=== PATIENT | female | born 1950 | race Caucasian/White ===

== ENCOUNTER 2018-03-17 20:00 | Emergency (ER) | payer MEDICARE ==
[~2018-03-17] VITALS: Ht 157.5 cm; Wt 79.4 kg
[~2018-03-17 20:00] MED LIST: AMOCLA875 PO; ASPI325 PO; ATEN25 PO; BAYER PLUS 500500 MG PO; BP MED; CYCL10 PO; IBUP400 PO; OMEP20ER PO; OXYACE5T PO; VIOXX
== END 2018-03-17 21:03 | disposition home or self-care (01) ==
LOC: ER 20:00
DX: S09.90XA Unspecified injury of head, initial encounter (principal); S40.012D Contusion of left shoulder, subsequent encounter; W18.30XA Fall on same level, unspecified, initial encounter; Z79.899 Other long term (current) drug therapy; I10 Essential (primary) hypertension; F17.200 Nicotine dependence, unspecified, uncomplicated
CPT/HCPCS: 70450; 72125; 99284-25

== ENCOUNTER 2019-03-02 00:19 | Day surgery (SDC) | payer OTHER | END 2019-03-02 23:07 | disposition home or self-care (01) | LOC: WOUND 00:19 | DX: L97.822 Non-pressure chronic ulcer of other part of left lower leg with fat layer exposed (principal); L97.821 Non-pressure chronic ulcer of other part of left lower leg limited to breakdown of skin; I87.2 Venous insufficiency (chronic) (peripheral); I73.9 Peripheral vascular disease, unspecified | CPT/HCPCS: 87070; 87075; 87205; G0463 ==

== ENCOUNTER 2019-03-12 02:32 | Day surgery (SDC) | payer OTHER | END 2019-03-12 22:43 | disposition home or self-care (01) | LOC: WOUND 02:32 | DX: L97.821 Non-pressure chronic ulcer of other part of left lower leg limited to breakdown of skin (principal); L97.822 Non-pressure chronic ulcer of other part of left lower leg with fat layer exposed; I87.2 Venous insufficiency (chronic) (peripheral); I10 Essential (primary) hypertension; Z72.0 Tobacco use ==

== ENCOUNTER 2019-03-29 12:59 | Day surgery (SDC) | payer OTHER | END 2019-03-29 23:08 | disposition home or self-care (01) | LOC: WOUND 12:59 | DX: L97.821 Non-pressure chronic ulcer of other part of left lower leg limited to breakdown of skin (principal); S81.001A Unspecified open wound, right knee, initial encounter; I87.2 Venous insufficiency (chronic) (peripheral); I73.9 Peripheral vascular disease, unspecified; I10 Essential (primary) hypertension; F17.200 Nicotine dependence, unspecified, uncomplicated ==

== ENCOUNTER 2019-04-05 00:30 | Day surgery (SDC) | payer OTHER | END 2019-04-05 23:07 | disposition home or self-care (01) | LOC: WOUND 00:30 | DX: L97.821 Non-pressure chronic ulcer of other part of left lower leg limited to breakdown of skin (principal); S81.001D Unspecified open wound, right knee, subsequent encounter; I87.2 Venous insufficiency (chronic) (peripheral); I73.9 Peripheral vascular disease, unspecified; I10 Essential (primary) hypertension; F17.200 Nicotine dependence, unspecified, uncomplicated ==

== ENCOUNTER 2019-04-07 00:20 | Day surgery (SDC) | payer OTHER | END 2019-04-07 23:14 | disposition home or self-care (01) | LOC: WOUND 00:20 | DX: L97.822 Non-pressure chronic ulcer of other part of left lower leg with fat layer exposed (principal); I87.2 Venous insufficiency (chronic) (peripheral); I73.9 Peripheral vascular disease, unspecified; S81.001D Unspecified open wound, right knee, subsequent encounter; I10 Essential (primary) hypertension ==

== ENCOUNTER 2019-04-12 00:24 | Day surgery (SDC) | payer OTHER | END 2019-04-12 22:48 | disposition home or self-care (01) | LOC: WOUND 00:24 | DX: L97.821 Non-pressure chronic ulcer of other part of left lower leg limited to breakdown of skin (principal); I87.2 Venous insufficiency (chronic) (peripheral); I73.9 Peripheral vascular disease, unspecified; I10 Essential (primary) hypertension; S81.001D Unspecified open wound, right knee, subsequent encounter ==

== ENCOUNTER 2019-04-19 00:34 | Day surgery (SDC) | payer OTHER | END 2019-04-19 23:22 | disposition home or self-care (01) | LOC: WOUND 00:34 | DX: L97.822 Non-pressure chronic ulcer of other part of left lower leg with fat layer exposed (principal); S81.001D Unspecified open wound, right knee, subsequent encounter; I87.2 Venous insufficiency (chronic) (peripheral); I73.9 Peripheral vascular disease, unspecified; I10 Essential (primary) hypertension; F17.200 Nicotine dependence, unspecified, uncomplicated ==

== ENCOUNTER 2019-04-26 12:52 | Day surgery (SDC) | payer OTHER | END 2019-04-26 22:55 | disposition home or self-care (01) | LOC: WOUND 12:52 | DX: L97.822 Non-pressure chronic ulcer of other part of left lower leg with fat layer exposed (principal); I87.2 Venous insufficiency (chronic) (peripheral); I73.9 Peripheral vascular disease, unspecified; S81.001D Unspecified open wound, right knee, subsequent encounter; I10 Essential (primary) hypertension; F17.200 Nicotine dependence, unspecified, uncomplicated; F41.9 Anxiety disorder, unspecified; F32.9 Major depressive disorder, single episode, unspecified; X58.XXXD Exposure to other specified factors, subsequent encounter | CPT/HCPCS: Q4196 ==

== ENCOUNTER 2019-05-03 12:11 | Day surgery (SDC) | payer OTHER | END 2019-05-03 22:45 | disposition home or self-care (01) | LOC: WOUND 12:11 | DX: L97.822 Non-pressure chronic ulcer of other part of left lower leg with fat layer exposed (principal); I87.2 Venous insufficiency (chronic) (peripheral); S81.001D Unspecified open wound, right knee, subsequent encounter; I10 Essential (primary) hypertension; F41.9 Anxiety disorder, unspecified; F32.9 Major depressive disorder, single episode, unspecified; F17.200 Nicotine dependence, unspecified, uncomplicated | CPT/HCPCS: Q4196 ==

== ENCOUNTER 2019-05-12 13:11 | Day surgery (SDC) | payer OTHER | END 2019-05-12 23:02 | disposition home or self-care (01) | LOC: WOUND 13:11 | DX: L97.822 Non-pressure chronic ulcer of other part of left lower leg with fat layer exposed (principal); I87.2 Venous insufficiency (chronic) (peripheral); I10 Essential (primary) hypertension; F17.200 Nicotine dependence, unspecified, uncomplicated; F41.9 Anxiety disorder, unspecified; F32.9 Major depressive disorder, single episode, unspecified | CPT/HCPCS: G0463 ==

== ENCOUNTER → 2019-11-23 | Outpatient (CLI) | payer OTHER ==
[2019-11-23 20:09] LABS: Alanine Aminotransfer (ALT/SGP 14 U/L (12-78); Albumin, Blood 3.7 g/dL (3.4-5.0); Albumin/Globulin Ratio 1.1 (0.8-1.8); Alk Phos 80 U/L (50-136); Anion Gap 7 mmol/L (6-16); Aspartate Aminotrans (AST/SGOT 14 U/L (12-37); Bilirubin, Total 0.3 mg/dL (0.1-1.0); Blood Urea Nitrogen 22 mg/dL (8-24); Bun/Creatinine Ratio 23.6 (12.0-20.0); CO2, Blood 21 mmol/L (21-32); Calcium, Blood 8.8 mg/dL (8.5-10.1); Chloride, Blood 104 mmol/L (98-108); Creatinine, Blood 0.93 mg/dL (0.40-1.00); Globulin, Blood 3.5 g/dL (2.2-4.0); Glomerular Filtration Rate >60 (60-); Glucose, Blood 112 mg/dL (70-99); Potassium, Blood 4.8 mmol/L (3.5-5.5); Sodium, Blood 132 mmol/L (136-145); Total Protein, Blood 7.2 g/dL (6.4-8.2)
[2019-11-24 12:09] LABS: BASOPHILS ABSOLUTE AUTO 0.03 K/mm3 (0.00-0.23); BASOPHILS PERCENT AUTO 1 % (0-2); EOSINOPHILS ABSOLUTE AUTO 0.11 K/mm3 (0.00-0.68); EOSINOPHILS PERCENT AUTO 2 % (0-6); Hematocrit 38.6 % (33.0-51.0); IMMATURE GRAN ABSOLUTE AUTO 0.02 K/mm3 (0.00-0.10); IMMATURE GRAN PERCENT AUTO 0 % (0-1); LYMPHOCYTES ABSOLUTE AUTO 1.59 K/mm3 (0.84-5.20); LYMPHOCYTES PERCENT AUTO 28 % (21-46); MONOCYTES ABSOLUTE AUTO 0.37 K/mm3 (0.16-1.47); MONOCYTES PERCENT AUTO 7 % (4-13); Mean Corpuscular HGB 31.6 pg (26.0-34.0); Mean Corpuscular HGB Conc 33.7 g/dL (31.5-36.5); Mean Corpuscular Volume 94 fL (80-100); Mean Platelet Volume 11.6 fL (9.1-12.4); NEUTROPHILS ABSOLUTE AUTO 3.56 K/mm3 (1.96-9.15); NEUTROPHILS PERCENT AUTO 63 % (41-73); Platelet Count 186 K/mm3 (150-400); RDW Standard Deviation 48.3 fL (35.1-46.3); Red Blood Cell Count 4.11 M/mm3 (3.80-5.20); White Blood Cell Count 5.68 K/mm3 (4.00-11.30)
== END | disposition home or self-care (01) ==
LOC: LAB SHORT 18:37 → LAB 18:37
PROVIDERS: Physician Assistant
DX: I73.9 Peripheral vascular disease, unspecified (principal); I10 Essential (primary) hypertension
CPT/HCPCS: 80053; 85025

== ENCOUNTER 2020-01-12 07:57 | Day surgery (SDC) | payer OTHER ==
[~2020-01-12] VITALS: Ht 172.7 cm; Wt 84.0 kg
[~2020-01-12 07:57] MED LIST changes: +ATOR20 PO; +LOSARTAN POTAS100 M1 PO; +METO100 PO
[2020-01-12] MEDS ORDERED: CLOP75 PO (12:40)
--- NOTE | 2020-01-12 14:19 | NUR ---
PT AMB TO BATHROOM /C SBA. TOLERATED WELL. -BLEEDING OR SWELLING R GROIN AREA.
--- NOTE | 2020-01-12 14:28 | NUR ---
REPORT TAKEN FROM DARLYN MENDEZ RN TO ASSUME CARE. PT RESTING COMFORTABLY.SITE REMAINS STABLE. VSS. NADN. CALL LIGHT WITHIN REACH.
--- NOTE | 2020-01-12 15:03 | NUR ---
PT VERBALIZES UNDERSTANDING WRITTEN AND VERBAL ORDERS. VSS. NADN. PT DRESSES SELF WITHOUT DIFF. R FEM SITE REMAINS CLEAR. PT IV DC'D. CATH INTACT. PRESSURE DSG APPLIED. PT DC TO HOME VIA WC BY ESCORT/ PT MOTHER TO DRIVE PT HOME.
== END 2020-01-12 15:05 | disposition home or self-care (01) ==
LOC: MHTC 07:57
DX: I70.212 Atherosclerosis of native arteries of extremities with intermittent claudication, left leg (principal); I10 Essential (primary) hypertension; I87.2 Venous insufficiency (chronic) (peripheral); Z79.899 Other long term (current) drug therapy; Z91.038 Other insect allergy status; Z79.82 Long term (current) use of aspirin
CPT/HCPCS: 37225; 37228; 75625; 75716; 75774; 85347; 99152; 99153; C1725; C1760; C1769; C1884; C1887; C1894; C2623; J1644; J2060; J2250; J2405; J3010; J7030; Q9967; U0002

== ENCOUNTER 2020-08-09 18:23 | Emergency (ER) | payer OTHER ==
[~2020-08-09] VITALS: Ht 170.2 cm; Wt 90.7 kg
[~2020-08-09 18:23] MED LIST changes: +CLOP75 PO
== END 2020-08-09 20:18 | disposition home or self-care (01) ==
LOC: ER 18:23
DX: S01.01XA Laceration without foreign body of scalp, initial encounter (principal); F10.129 Alcohol abuse with intoxication, unspecified; I10 Essential (primary) hypertension; Z79.899 Other long term (current) drug therapy; Z79.82 Long term (current) use of aspirin; Z79.02 Long term (current) use of antithrombotics/antiplatelets; Z87.891 Personal history of nicotine dependence; W01.10XA Fall on same level from slipping, tripping and stumbling with subsequent striking against unspecified object, initial encounter
CPT/HCPCS: 12001; 70450; 72125; 99284-25

== ENCOUNTER 2023-06-16 10:55 | Inpatient (IN) | payer OTHER ==
[~2023-06-16] VITALS: Ht 170.2 cm; Wt 101.6 kg
[2023-06-16] VITALS (11 sets, daily range): BP systolic 64–129; BP diastolic 40–110
[2023-06-16 11:18] LABS: BASOPHILS ABSOLUTE AUTO 0.07 K/mm3 (0.00-0.23); BASOPHILS PERCENT AUTO 1 % (0-2); LYMPHOCYTES ABSOLUTE AUTO 0.66 K/mm3 (0.84-5.20); LYMPHOCYTES PERCENT AUTO 7 % (21-46); MONOCYTES ABSOLUTE AUTO 0.98 K/mm3 (0.16-1.47); MONOCYTES PERCENT AUTO 10 % (4-13); Mean Corpuscular HGB 30.4 pg (26.0-34.0); Mean Corpuscular HGB Conc 33.3 g/dL (31.5-36.5); Mean Corpuscular Volume 91 fL (80-100); Mean Platelet Volume 10.7 fL (9.1-12.4); Platelet Count 179 K/mm3 (150-400); RDW Coefficient Variation 13.8 % (11.7-14.2); RDW Standard Deviation 45.9 fL (35.1-46.3); Red Blood Cell Count 4.28 M/mm3 (3.80-5.20); White Blood Cell Count 10.13 K/mm3 (4.00-11.30)
[2023-06-16 11:19] LABS: EOSINOPHILS PERCENT AUTO 0 % (0-6); IMMATURE GRAN PERCENT AUTO 1 % (0-1); NEUTROPHILS ABSOLUTE AUTO 8.32 K/mm3 (1.96-9.15); NEUTROPHILS PERCENT AUTO 82 % (41-73)
[2023-06-16 11:35] LABS: Albumin, Blood 2.1 g/dL (3.4-5.0); Albumin/Globulin Ratio 0.6 (0.8-1.8); Bilirubin, Total 0.9 mg/dL (0.1-1.0); Bun/Creatinine Ratio 15.1 (12.0-20.0); Calcium, Blood 8.2 mg/dL (8.5-10.1); Creatinine, Blood 4.18 mg/dL (0.40-1.00); Globulin, Blood 3.8 g/dL (2.2-4.0); Potassium, Blood 4.6 mmol/L (3.5-5.5); Total Protein, Blood 5.9 g/dL (6.4-8.2)
[2023-06-16 12:21] LABS: Influenza A, PCR NEGATIVE (NEGATIVE); Influenza B, PCR NEGATIVE (NEGATIVE); Resp Syncytial Virus, PCR NEGATIVE (NEGATIVE); SARS-Cov-2 (COVID-19) PCR, MMC NEGATIVE (NEGATIVE)
[2023-06-16] MEDS ORDERED: AMLO10 PO (16:08)
[2023-06-16] MEDS ORDERED: ELIQUIS5 M2 PO (16:08)
[2023-06-16] MEDS ORDERED: FOLI1 PO (16:24)
[2023-06-16] MEDS ORDERED: ROSU10TA PO (16:25)
[2023-06-16] MEDS ORDERED: GABA300 PO (16:25)
--- NOTE | 2023-06-16 18:46 | NUR ---
Received pt from ED at 1700 awake and alert x3. Gen pain, and sensitive to touch. Able to turn self with min ast side to side. Afib RVR on monitor. Resp even nonlabored on 2L. Finger tips cool and cyanotic. Toes cool. BLE edema noted. See skin assessment and refer to pictures. Oriented to room and call light. One episode of watery stool sent to lab.
[2023-06-16 20:30] LABS: Base Excess Venous -10.8 mmol/L; Bicarbonate Venous 16.6 mmol/L (24.0-30.0); PCO2 Venous 31.4 mmHg (38-42)
[2023-06-16 20:46] LABS: Bun/Creatinine Ratio 16.6 (12.0-20.0); Calcium, Blood 7.3 mg/dL (8.5-10.1); Creatinine, Blood 4.28 mg/dL (0.40-1.00); Magnesium, Blood 1.3 mg/dL (1.6-2.4)
[2023-06-16 20:56] LABS: Adenovirus F 40/41 Not Detected (NOT DETECT); Astrovirus Not Detected (NOT DETECT); Campylobacter Sp Detected (NOT DETECT); Cryptosporidium Not Detected (NOT DETECT); Cyclospora Cayetanensis Not Detected (NOT DETECT); E. Coli O157 Not Detected (NOT DETECT); Entamoeba Histolytica Not Detected (NOT DETECT); Enteroaggregative E. coli-EAEC Not Detected (NOT DETECT); Enteropathogenic E. coli-EPEC Not Detected (NOT DETECT); Enterotoxigenic E. coli-ETEC Not Detected (NOT DETECT); Giardia Lamblia Not Detected (NOT DETECT); Norovirus GI/GII Not Detected (NOT DETECT); Plesiomonas Shigelloides Not Detected (NOT DETECT); Rotavirus A Not Detected (NOT DETECT); Salmonella Sp Not Detected (NOT DETECT); Sapovirus Not Detected (NOT DETECT); Shiga Toxin-prod E. coli-STEC Not Detected (NOT DETECT); Shigella/Enteroin E. coli-EIEC Not Detected (NOT DETECT); Vibrio Cholerae Not Detected (NOT DETECT); Vibrio Sp Not Detected (NOT DETECT); Yersinia Enterocolitica Not Detected (NOT DETECT)
--- NOTE | 2023-06-16 22:07 | NUR ---
PT HR WAS AFIB SUSTAINING IN THE 150'S. UNABLE TO GET BP WITH MONITOR. TRIED MANUAL BP BUT IT WAS SO FAINT THAT IT WAS HARD TO DISTINGUISH. 80'S TO 90'S SYSTOLIC. CALLED PHYSICIAN, LABS AND XRAY WERE ORDERED. PT TO GO TO PCU 7. PCU CHARGE CAME DOWN AND STARTED AMIODARONE DRIP. GAVE REPORT TO PAYTON Bagley IN PCU. DECIDED TO SEND PT TO ICU 11, REPORT GIVEN TO BERNICE. PCU CHARGE TOOK PT TO ICU.
--- NOTE | 2023-06-16 22:54 | NUR ---
2100 - THIS RN ARRIVED TO [facility] FLOOR AFTER RECEIVING CALL FROM STRADDLE BUGGY OPERATOR THAT PATIENT WOULD BE TRANSFERRING TO PCU. PCU ROOM CURRENTLY BEING CLEANED BUT NOT AVAILABLE. UPON EVALUATION OF PT, CHART AND VITALS, HR IN 140-150S AND BP LOW. TAKES PO METOPROLOL BUT UNABLE TO TOLERATE DUE TO NAUSEA AND HASN'T TAKEN SINCE YESTERDAY PER PT. AMIO GTT ORDERED BY PROVIDER BUT NOT STARTED. AMIO BOLUS AND GTT STARTED BY THIS RN TO ATTEMPT BETTER RATE CONTROL FOR IMPROVEMENT IN BP. REMAINED AT BEDSIDE. VITALS OBTAINED Q5-15MIN AND BP REMAINED LOW WITH SOME IMPROVEMENT IN HR TO 110S AT TIMES. PT REPORTS FEELING COLD AND TIRED. DENIES DIZZINESS OR LIGHTHEADINESS AND REMAINED AWAKE. AFTER DISCUSSION WITH DR. FIORE AND CONTINUED LOW BP S/P AMIO X1 HOUR AND IV BOLUS, PT ULTIMATELY TRANSFERRED TO ICU -11 FOR CLOSER MONITORING. REPORT GIVEN BY PRIMARY RN.
[2023-06-17] VITALS (92 sets, daily range): BP systolic 56–175; BP diastolic 31–149
[2023-06-17 02:59] LABS: Source, Urine Foley catheter
[2023-06-17 03:02] LABS: Bilirubin, Urine Neg (Neg); Blood, Urine 3+ (Neg); Glucose Qualitative, Urine Neg (Neg); Ketones, Urine Neg (Neg); Leukocyte Esterase, Urine 2+ (Neg); Nitrite, Urine Neg (Neg); Protein, Urine 3+ (Neg); Urobilinogen, Urine NORM (Normal)
[2023-06-17 03:18] LABS: Base Excess Venous -12.9 mmol/L; Bicarbonate Venous 14.9 mmol/L (24.0-30.0); PCO2 Venous 30.8 mmHg (38-42)
[2023-06-17 03:19] LABS: pH Blood Venous 7.27 (7.34-7.37)
[2023-06-17 03:26] LABS: Hematocrit 30.6 % (33.0-51.0); Hemoglobin 10.5 g/dL (11.5-16.0); Mean Corpuscular HGB 30.2 pg (26.0-34.0); Mean Corpuscular HGB Conc 34.3 g/dL (31.5-36.5); Mean Corpuscular Volume 88 fL (80-100); Mean Platelet Volume 10.6 fL (9.1-12.4); Platelet Count 140 K/mm3 (150-400); RDW Coefficient Variation 13.6 % (11.7-14.2); Red Blood Cell Count 3.48 M/mm3 (3.80-5.20); White Blood Cell Count 8.13 K/mm3 (4.00-11.30)
[2023-06-17 03:49] LABS: Appearance, Urine Hazy (Clear); Color, Urine Yellow (P-Yellow)
[2023-06-17 03:49] LABS: Bun/Creatinine Ratio 17.1 (12.0-20.0); Calcium, Blood 6.8 mg/dL (8.5-10.1); Creatinine, Blood 3.97 mg/dL (0.40-1.00); Magnesium, Blood 1.5 mg/dL (1.6-2.4); Potassium, Blood 3.8 mmol/L (3.5-5.5)
[2023-06-17 03:51] LABS: Amorphous Light (0-Heavy); Bacteria Many /hpf; Red Blood Cells, Urine 0-2 /hpf (0-2); Squamous Epithelial Cells Mod /hpf (Few); White Blood Cells, Urine 25-50 /hpf (0-5)
[2023-06-17 04:42] LABS: BAND PERCENT MAN 24 % (0-8); BASOPHILS PERCENT MAN 0 % (0-2); EOSINOPHILS PERCENT MAN 0 % (0-6); LYMPHOCYTES ABSOLUTE MAN 0.24 K/mm3 (0.84-5.20); LYMPHOCYTES PERCENT MAN 3 % (21-46); MONOCYTES ABSOLUTE MAN 0.48 K/mm3 (0.16-1.47); MONOCYTES PERCENT MAN 6 % (4-13); NEUTROPHILS ABSOLUTE MAN 7.39 K/mm3 (1.96-9.15); SEG NEUTROPHILS PERCENT MAN 67 % (41-73); TOTAL CELLS COUNTED 100
--- NOTE | 2023-06-17 07:37 | NUR ---
ARRIVAL TO ICU PT ARRIVED VIA BED TO ICU 11 WITH PCU CHARGE NURSE AT BEDSIDE. MAP 50-60'S. VERIFIED WITH MANUAL BP AND DOPPLER. AMIO STARTED PRIOR TO ARRIVAL. PROVIDER AT BEDSIDE. ORDER FOR FLUID BOLUS. SEE EMAR. PT REMAINED HYPOTENSIVE, MANUAL SBP 52. PT PALE, AND LETHARGIC. HOSP CALLED AND UPDATED. ORDER FOR 2L NS BOLUS. PROVIDER AWARE OF NO IMPROVEMENT IN BP AFTER BOLUS AND MAP 40-50'S. AFTER FIRST BAG OF NS COMPLETE AND NO IMPROVEMENT IN BP, PROVIDER AT BEDSIDE. ORDER TO GIVE REMAINING BOLUS, ALBUMIN AND START TEMITOPE. SEE EMAR. CRITICAL LA, AND PH CALLED TO HOSP. ORDERS RECEIVED. URENA PLACED AND DRAINING MINIMAL AMOUNT OF JULIO URINE. UNABLE TO GET SPO2 READING UNTIL THIS AM. HOSP AWARE. 6L VIA NC. PT A/O X 4. FOLLOWS COMMANDS AND MOVES ALL EXTREMITIES. VSS THIS AM. TEMITOPE, AMIO, AND NS INFUSING. CLAY "ANAY" GIVEN UPDATE AT TIME OF TRANSFER AND THIS AM. BEDSIDE REPORT GIVEN TO ONCOMING RN.
--- NOTE | 2023-06-17 10:49 | NUR ---
"SPiritual Care | Pt. request Pt. is resting but responds when I enter the room. Pt. is unsettled by her lack of bowel control, and is continually apologetic. Facilitate a life review. Pt. verbalizes that her mother is a support person, but because of her mothers's age, Pt. does not want her coming to hospital from her home in [place]. Pt. displays evidence of being very cold. Prayed for Pt. Pt. verbalized gratitude for the spiritual care visit."
[2023-06-17 13:03] LABS: Bicarbonate Venous 16.6 mmol/L (24.0-30.0); PCO2 Venous 37.1 mmHg (38-42); pH Blood Venous 7.27 (7.34-7.37)
[2023-06-17 13:25] LABS: Bun/Creatinine Ratio 17.8 (12.0-20.0); Calcium, Blood 7.1 mg/dL (8.5-10.1); Creatinine, Blood 3.54 mg/dL (0.40-1.00); Magnesium, Blood 1.4 mg/dL (1.6-2.4); Phosphorus, Blood 4.4 mg/dL (2.5-4.9); Potassium, Blood 3.5 mmol/L (3.5-5.5)
--- NOTE | 2023-06-17 15:32 | NUR ---
0700 ASSUMED CARE OF ILYA TODAY. [address] 0845 ULTRASOUND DONE 0900 PICC LINE PLACED BY LING GUEVARA 0930 ECHO COMPLETED 1000 PT HAS GOING BICARB DRIP AT 75/HR, NS AT 75/HR, ELECTROLYTE REPLACEMENT'S FREQ., ANTIBIOTICS GOING AND CHANGED UP. PT IS ALERT AND ORIENTED HOWEVER WEAK AND A BIT DROWSY. SHE NEEDS HELP TURNING SIDE TO SIDE IN BED. SHE HAS LE EDEMA GREATER ON THE LEFT THAN RIGHT WITH WHEEPING LEGS AND BLISTERS THE SIZE OF A SOFT BALL TO RIGHT FOOT RIGHT CALF. SHE DID HAVE THE BLISTER ON HER RIGHT CALF POP OPEN, DRESSING ARE ON HEELS AND OVER POSTERIOR AND ANTERIOR OF LOWER LEGS. SHE HAS A URENA IN PLACE WITH VERY LITTLE URINE OUT.. MEASURING 15-20ML/HR OUT THROUGHOUT THE DAY. PT HAS HAD 3 LG LOOSE INCONTINENT STOOLS TODAY AND THEN A RECTAL TUBE WAS PLACED HOWEVER IT IS STLL LEAKING AROUND THE TUBE TOO. SHE HAS SOFT BUT TENDER ABD AND RIBS. HYPERACTIVE BT. CLEAR LUNG SOUNDS ON 6L NC START OF DAY AND OF 1200 SHE WAS DROPPED TO 4L NC. SHE IS OXYGENATIONG WELL SPOW 99-100%. SHE IS NOT HAVING FEVER'S ABOVE 99.4 SO FAR TODAY VIA THE TEMP URENA. SHE HAD TO HAVE HER IV TO LEFT AC PULLED OUT DUE TO IT LEAKING BLOOD OUT AROUND THE INSERTION SITE EVEN AFTER REDRESSED. PT IS ON PHENYLEPHERINE DRIP MOSTLY AT 70MCG/MIN FOR THE DAY BUT OF 1400 SHE IS AT 80MCG/MIN. PT WEAK AND TIRED AND HAS A VERY FULL DAY. FRIENDS CAME BY AND SAW HER BUT WERE VERY UPSET AND DIDN'T STAY LONG "SAUMYA BUSTAMANTE AND СЕРГЕЙ KRAUSE" AND MOTHER OF PATIENT ALSO CAME FOR 5 MIN. TO TALK WITH HER THEN LEFT AGAIN AND THAT WAS AROUND NOON TODAY. SHE WILL BE BACK TOMORROW. NEPHEW CALLED AND GOT UPDATES BY SURVEY CREW CHIEFIMAN GUEVARA TODAY. CONTINUEING TO MONITOR VS, LABS, I/O'S CLOSELY. WOUNDS TO LEGS AND DIME SIZE WOUND TO BOTTOM WERE REDRESSED AFTER PICTURES WERE DONE--TODAY.
--- NOTE | 2023-06-17 15:56 | NUR ---
"Spiritual Care Support | Nurse request Pt. has guests who are displaying emotions that are raising anxiety for the Pt. Nurse contacted this nylon machine operator for assistance. This nylon machine operator assisted one of the Pts. friends to the exit, and later stayed as her escort back into the ICU. Provided words of comfort and hope, as the friends exited the ICU."
--- NOTE | 2023-06-17 18:31 | NUR ---
END OF SHIFT NOTE ILYA HAS HAD A VERY BUSY DAY TODAY. SHE HAS REALLY WANTED TO REST COME THIS AFTERNOON. SHE IS DRINKING WATER OK BUT IF NOT SITTING UPRIGHT SHE COUGHS ON HER WATER. SHE REMAINS ON BICARB DRIP AT 75ML/HR, NS AT 75ML/HR, AND PHENYLEPHERINE AT 80MCG/MIN TO KEEP MAP AT 65 OR GREATER. HER URINE OUT PUT IS LESS THAN DESIRABLE. DR MORRISSEY IS AWARE. SHE HAS A URENA FOR CRITICAL STRICT I/O SHE HAS A RECTAL TUBE DUE TO HER EXPLOSIVE AND VERY LIQUID DIARRHEA. SHE WAS INCOTINENT 4 X TODAY WITH STOOL AND 200ML IS IN THE BAG. SHE STILL HAS A BIG BLISTER ON HER RIGHT FOOT AND THE OTHERS ARE POPPED AND WEAPING. DRESSINGS ARE IN PLACE. SHE IS NOT AFEBRILE AT THIS TIME BUT SHE ALSO STATES SHE FEELS COLD A LOT. SHE WAS TELLING RN AT END OF SHIFT THAT SHE DRINKS 2 GLASSES OF WINE TWICE A WEEK AND HER LAST DRINK WAS ABOUT 6-10 DAYS AGO SHE CANT REMEMBER. SHE IS QUITE TREMBULOUS HOWEVER. WILL GIVE REPORT TO NEXT SHIFT TO RESUME CARE.
--- NOTE | 2023-06-17 19:54 | NUR ---
PATIENT RESTING QUIETLY IN BED, OPENS EYES TO VERBAL STIMULI. A&O X3. GENERALIZED WEAKNESS HAS TREMOR WITH MOVEMENT. PATIENT VERBALIZED FEELING COLD. ROOM TEMP INCREASED AND WARM BLANKET GIVEN, TREMOR CONTINUES DESPITE FEELING WARMER. BIOX 93-99% ON 4L/NC. AFIB CONTINUES WITH RATE 110-120'S. HYPOTENSION WITH TEMITOPE-SYNEPHRINE AT 80 MCG. NS 75/HR AND BICARB 75/HR CONTINUE. RECTAL TUBE IN PLACE DRAINING LIQUID BROWN STOOL.
[2023-06-18] VITALS (84 sets, daily range): BP systolic 71–112; BP diastolic 52–96
[2023-06-18 04:21] LABS: Hematocrit 29.5 % (33.0-51.0); Hemoglobin 10.1 g/dL (11.5-16.0); Mean Corpuscular HGB 30.1 pg (26.0-34.0); Mean Corpuscular HGB Conc 34.2 g/dL (31.5-36.5); Mean Corpuscular Volume 88 fL (80-100); Platelet Count 104 K/mm3 (150-400); RDW Coefficient Variation 13.8 % (11.7-14.2); RDW Standard Deviation 44.6 fL (35.1-46.3); Red Blood Cell Count 3.35 M/mm3 (3.80-5.20); White Blood Cell Count 8.87 K/mm3 (4.00-11.30)
[2023-06-18 04:41] LABS: Albumin/Globulin Ratio 0.7 (0.8-1.8); Bun/Creatinine Ratio 18.8 (12.0-20.0); Calcium, Blood 7.2 mg/dL (8.5-10.1); Creatinine, Blood 3.04 mg/dL (0.40-1.00); Globulin, Blood 2.9 g/dL (2.2-4.0); Magnesium, Blood 1.8 mg/dL (1.6-2.4); Phosphorus, Blood 2.7 mg/dL (2.5-4.9); Potassium, Blood 3.1 mmol/L (3.5-5.5); Total Protein, Blood 4.9 g/dL (6.4-8.2)
[2023-06-18 05:00] LABS: BAND PERCENT MAN 22 % (0-8); BASOPHILS PERCENT MAN 0 % (0-2); EOSINOPHILS PERCENT MAN 0 % (0-6); LYMPHOCYTES ABSOLUTE MAN 0.53 K/mm3 (0.84-5.20); LYMPHOCYTES PERCENT MAN 6 % (21-46); MONOCYTES ABSOLUTE MAN 0.08 K/mm3 (0.16-1.47); MONOCYTES PERCENT MAN 1 % (4-13); NEUTROPHILS ABSOLUTE MAN 8.24 K/mm3 (1.96-9.15); SEG NEUTROPHILS PERCENT MAN 71 % (41-73); TOTAL CELLS COUNTED 100
--- NOTE | 2023-06-18 06:00 | NUR ---
SUMMARY PATIENT SLEEPING OFF AND ON T/O NIGHT. TREMOR TO UPPER EXTREMITIES CONTINUES, MORE SO WHEN PATIENT ANXIOUS. HEART RATE UP TO 130'S AT TIMES WHEN ANXIOUS THEN SELF RESOLVING TO 110-120'S WHEN RELAXED. TEMITOPE-SYNEPHRINE TITRATED DOWN TO 60 MCG. GOAL TO KEEP MAP>65. CONTINUES ON 4L/NC WITH BIOX 93% DOWN TO 88% ON RA.
--- NOTE | 2023-06-18 07:00 | NUR ---
ASSUME CARE: I have assumed care of this patient.
[2023-06-18 09:14] LABS: Base Excess Venous -10.4 mmol/L; Bicarbonate Venous 16.8 mmol/L (24.0-30.0); PCO2 Venous 35.6 mmHg (38-42)
[2023-06-18 09:15] LABS: pH Blood Venous 7.27 (7.34-7.37)
--- NOTE | 2023-06-18 10:14 | NUR ---
FAMILY UPDATE: pt's nephiew updated.
--- NOTE | 2023-06-18 14:11 | NUR ---
PROVIDER UPDATE: RN spoke with Dr Sosa for pt update. UOP and CIWA discussed.
[2023-06-18 15:21] LABS: Phosphorus, Blood 3.1 mg/dL (2.5-4.9)
--- NOTE | 2023-06-18 18:01 | NUR ---
SHIFT SUMMARY: Neosynephrine titrated down per flowsheets. Rectal tube still with liquid stool. Osborn in place and draining to gravity; 365mls out this shift. Mag, K, and Phos replaced per emar. PRN oxycodone given twice for headache/rectal pain. Zofran given once for nausea. Pt states she has not had an alcoholic beverage for approximately ten days. She is tremulous and it is difficult to get a consistant SpO2. Additionally, she repositions her nasal cannula frequently. While resting with good pleth, pulse ox remains above 90% on 5L NC. BLE were cleansed with wound spray and absorbant dry-flos placed below BLE for weaping. Mepitel One placed over blister on dorsal aspect of right foot and over open blister on right calf. PICC line dressing replaced per protocol. DNR wristband removed from pts wrist and from doorway per pt request. She states she does not want her family/visitors knowing her wishes because she doesn't "want all the drama". She was educated on how medical decision making would be made if she were to become incapacitated. Pt agreed to work with palliative care to clarify future wishes.
--- NOTE | 2023-06-18 19:33 | NUR ---
ASSUMED CARE OF PT AT 1905 PT RESTING IN BED AWAKE DURING BEDSIDE SHIFT REPORT. FAMILY AT BEDSIDE AT FINISH OF REPORT. A/O X4 TEMITOPE AT 20 MCG WITH MAP 66 AT THIS TIME. 5 LPM NC WITH SPO2 >90%. DESATS WITH TALKING. RECTAL TUBE IN PLACE. TEMP URENA PATENT AND DRAINING TO GRAVITY. REPORT OF MINIMAL OUTPUT DURING DAYSHIFT (20 MLS HOUR). WILL CONTINUE TO MINITOR.
[2023-06-18 20:48] LABS: PCO2 Arterial 32.4 mmHg (35-45)
[2023-06-18 20:49] LABS: PO2 Arterial 77.5 mmHg (80-100); pH Blood Arterial 7.27 (7.35-7.45)
[2023-06-19] VITALS (63 sets, daily range): BP systolic 63–152; BP diastolic 36–109
[2023-06-19 03:55] LABS: Base Excess Venous -12.3 mmol/L; Bicarbonate Venous 15.2 mmol/L (24.0-30.0); PCO2 Venous 38.6 mmHg (38-42)
[2023-06-19 03:56] LABS: pH Blood Venous 7.21 (7.34-7.37)
[2023-06-19 04:07] LABS: Hematocrit 28.3 % (33.0-51.0); Hemoglobin 9.4 g/dL (11.5-16.0); Mean Corpuscular HGB 29.8 pg (26.0-34.0); Mean Corpuscular HGB Conc 33.2 g/dL (31.5-36.5); Mean Corpuscular Volume 90 fL (80-100); Mean Platelet Volume 11.2 fL (9.1-12.4); Platelet Count 67 K/mm3 (150-400); RDW Coefficient Variation 14.3 % (11.7-14.2); RDW Standard Deviation 46.7 fL (35.1-46.3); Red Blood Cell Count 3.15 M/mm3 (3.80-5.20); White Blood Cell Count 8.92 K/mm3 (4.00-11.30)
[2023-06-19 04:27] LABS: Albumin/Globulin Ratio 0.7 (0.8-1.8); Bilirubin, Total 1.1 mg/dL (0.1-1.0); Bun/Creatinine Ratio 20.4 (12.0-20.0); Creatinine, Blood 2.5 mg/dL (0.40-1.00); Potassium, Blood 3.2 mmol/L (3.5-5.5)
[2023-06-19 05:00] LABS: BAND PERCENT MAN 13 % (0-8); BASOPHILS PERCENT MAN 0 % (0-2); EOSINOPHILS ABSOLUTE MAN 0.17 K/mm3 (0.00-0.68); EOSINOPHILS PERCENT MAN 2 % (0-6); LYMPHOCYTES ABSOLUTE MAN 0.62 K/mm3 (0.84-5.20); LYMPHOCYTES PERCENT MAN 7 % (21-46); MONOCYTES ABSOLUTE MAN 0.44 K/mm3 (0.16-1.47); MONOCYTES PERCENT MAN 5 % (4-13); NEUTROPHILS ABSOLUTE MAN 7.67 K/mm3 (1.96-9.15); SEG NEUTROPHILS PERCENT MAN 73 % (41-73); TOTAL CELLS COUNTED 100
--- NOTE | 2023-06-19 06:05 | NUR ---
END OF SHIFT SUMMARY PT A/O X4. PT COMMUNICATED WITH PAPER AND PEN EVEN WITHOUT BIPAP ON D/T POOR DENTATION AND PREVIOUS HISTORY OF CANCER TREATMENT TO THROAT AREA. REQUIRING 10 LPM HUMIDIFIED HIGH FLOW FOR SPO2 >88%. PT DOES NOT TOLERATE BIPAP WELL. WORE BIPAP FOR A FEW HOURS THIS SHIFT. SINUS TACHY THIS AM WITH HR 100'S. SBP 110'S WITH MAP >65. LEVO ON SB AND NEVER INITIATED. NO BM THIS SHIFT. USES URINAL APPROPRIATELY. USES CALL LIGHT APPROPRIATELY FOR NEEDS. CALL LIGHT IN REACH. BED IN LOW POSITION. D5 1/2 NS RUNNING AT 150 MLS/HR. CONTINUING TO MONITOR UNTIL REPORT GIVEN TO AM RN.
--- NOTE | 2023-06-19 06:40 | NUR ---
END OF SHIFT SUMMARY PT AWAKE MOST OF THIS SHIFT WITH HIGH DISCOMFORT. A/O X4. USES CALL LIGHT APROPRIATELY. ABLE TO SWALLOW PILLS WITH WATER SITTING AT 90 DEGREES AND FULLY AWAKE, OTHERWISE COULD BE ASPIRATION RISK. BP NEEDS TO BE TAKEN WHILE RN IN ROOM MAKING SURE PT IS NOT USING ARM WHILE BEING TAKEN. FALSE LOW BP WILL RESULT. TEMITOPE RUNNING AT 45 MCG AT THIS TIME WITH MAP >65. A-FIB MOST OF THE SHIFT WITH HR FLUCTUATING 110'S TO 150'S. RECTAL TUBE IN PLACE WITH VERY LITTLE OUTPUT THIS SHIFT. URINE OUTPUT BARELY SUFFICIENT FOR PT ( SEE NURSE I/O CHARTING). PT LEGS ARE WEEPING A LOT OF FLUID FROM BLISTERS AND WOUNDS. CHUCKS PLACED UNDER LEGS TRADED OUT WERE SATURATED. CHANGED 3 TIMES THIS SHIFT. NS CHANGED TO SODIUM BICARB RUNNING AT 150 MLS/HR. CALL LIGHT IN REACH, BED IN LOW POSITION. CONTINUING TO MONITOR UNTIL REPORT GIVEN TO AM RN.
--- NOTE | 2023-06-19 07:00 | NUR ---
ASSUME CARE: I have assumed care of this patient.
[2023-06-19 13:10] LABS: Base Excess Venous -12.4 mmol/L; Bicarbonate Venous 15.2 mmol/L (24.0-30.0); PCO2 Venous 36.5 mmHg (38-42); pH Blood Venous 7.23 (7.34-7.37)
--- NOTE | 2023-06-19 13:31 | NUR ---
VBG RESULTS/PROVIDER UPDATE: Lab results discussed with Dr Sosa. RN instructed to change brandan to levophed and administer 20mg lasix.
[2023-06-19 13:44] LABS: Albumin, Blood 2.3 g/dL (3.4-5.0); Albumin/Globulin Ratio 0.7 (0.8-1.8); Bilirubin, Total 1.3 mg/dL (0.1-1.0); Bun/Creatinine Ratio 19.9 (12.0-20.0); Calcium, Blood 7.1 mg/dL (8.5-10.1); Creatinine, Blood 2.51 mg/dL (0.40-1.00); Globulin, Blood 3.1 g/dL (2.2-4.0); Magnesium, Blood 1.7 mg/dL (1.6-2.4); Phosphorus, Blood 3.6 mg/dL (2.5-4.9); Potassium, Blood 3.8 mmol/L (3.5-5.5); Total Protein, Blood 5.4 g/dL (6.4-8.2)
--- NOTE | 2023-06-19 15:52 | NUR ---
Spiritual Care Visit. Pt. is awake in bed when she welcomes my visit. Pt. is unsettled about being nauseous. Prayed with Pt. and at Pts. request, notified attending nurse Sheela.
--- NOTE | 2023-06-19 17:09 | NUR ---
Spoke with Primary RN Sheela and discussed case. Pt may benefit from completing an advanced directive. Spoke with Dr Sosa and discussed case. Pt may benefit from waiting another day before completing an advanced directive. Pt resting in bed and is A&OX4. Pt denies pain at this time. Pt appears mildy lethargic and graugy. Brief review of plan of care. Pt comfirms her wishes to complete AD and is agreeable to complete tomorrow. She reports she does not want her family to have any decision making ability when it comes to her care. Palliative Care will F/U tomorrow to assist with completing AD.
[2023-06-19 18:01] LABS: Base Excess Venous -11.5 mmol/L; Bicarbonate Venous 15.7 mmol/L (24.0-30.0); PCO2 Venous 36.4 mmHg (38-42); pH Blood Venous 7.25 (7.34-7.37)
[2023-06-19 18:23] LABS: Bun/Creatinine Ratio 13.4 (12.0-20.0); Calcium, Blood 6.5 mg/dL (8.5-10.1); Creatinine, Blood 2.47 mg/dL (0.40-1.00); Magnesium, Blood 1.7 mg/dL (1.6-2.4); Phosphorus, Blood 3.4 mg/dL (2.5-4.9); Potassium, Blood 3.6 mmol/L (3.5-5.5)
--- NOTE | 2023-06-19 18:39 | NUR ---
SHIFT SUMMARY: Pt diuresed with 1725 mls UOP this shift. KCL replaced. Gilmar changed to norepi; currently at 3 mcg/min. Tachycardia up to 150s was discussed with provider today. While sleeping pt's heart rate back down to 110s-120s. Liquid stool continues with 100mls out this shift. O2 down to 4L NC. Pt received two doses of PRN oxycodone for BLE pain. Wound care consult placed for possible debriedment of RLE. One dose of PRN zofran given as well for nausea. Pt with minimal appetite; she snacked on saltines crackers and drank one cranberry juice for low blood sugar. Palliative care at bedside to discuss advanced care planning. After palliative nurses left pt stated, "They don't think I can make my own decisions, do they?" This RN informed pt that advanced care planning is to insure her decisions and wishes are known and respected once she is no longer able to make them for herself.
--- NOTE | 2023-06-19 19:36 | NUR ---
ASSUMED CARE OF PT AT 1930 PT SLEEPING IN BED DURING BEDSIDE SHIFT REPORT. VITALS WNL AT THIS TIME. LEVO AT 3 MCG BICARD AT 75 MLS/HR. SEE FULL ASSESSMENT FOR FURTHER INFORMATION.
[2023-06-20] VITALS (44 sets, daily range): BP systolic 74–114; BP diastolic 32–76
--- NOTE | 2023-06-20 06:39 | NUR ---
END OF SHIFT SUMMARY PT SEEMS TO BE A/O X4, HOWEVER PT PULLS AT OXYGEN AND SPO2 PROBE. CONSTANT PRESENCE NEEDED IN ROOM D/T DESATING. PT LEGS ARE WEEPING PROFUSELY. LEGS WERE WRAPPED WITH NON ADHERENT DRESSING WITH ABD PAD FOR ABSORBSTION OF FLUIDS. BLE WRAPPED 3 TIMES THIS SHIFT. MULTIPLE AREAS ARE STARTING TO BLISTER WELL. WOUND CARE CONSULT ORDERED BY PREVIOUS SHIFT. PT CONTINUES TO BE IN A-FIB. DIG TREATMENT GIVEN WITH NO CONVERSION. PT STATES THAT SHE DOES NOT WANT TO "BE SHOCKED". PT WAS INFORMED OF THE PROCEDURE THAT WOULD NEED TO BE DONE IN ORDER TO CONVERT. PT IS STILL STATING SHE DOES NOT WISH TO DO CARDIO CONVERSION. D/T MENTATION OF PT THROUGHOUT THE SHIFT THIS RN CHOSE TO NOT GIVE PT PO MEDICATIONS. SLURRING OF SPEECH IS LESS HEARD THIS AM. NO CHANGE IN LUNG SOUNDS. OXYGENATION NEEDS DID NOT CHANGE THIS SHIFT. WILL CONTINUE TO MONITOR UNTIL REPORT GIVEN TO AM RN.
[2023-06-20 09:04] LABS: BASOPHILS ABSOLUTE AUTO 0.03 K/mm3 (0.00-0.23); BASOPHILS PERCENT AUTO 0 % (0-2); Hematocrit 27.8 % (33.0-51.0); Hemoglobin 9.2 g/dL (11.5-16.0); Mean Corpuscular HGB 29.8 pg (26.0-34.0); Mean Corpuscular HGB Conc 33.1 g/dL (31.5-36.5); Mean Corpuscular Volume 90 fL (80-100); Mean Platelet Volume 12.5 fL (9.1-12.4); Platelet Count 59 K/mm3 (150-400); RDW Coefficient Variation 14.1 % (11.7-14.2); RDW Standard Deviation 45.8 fL (35.1-46.3); Red Blood Cell Count 3.09 M/mm3 (3.80-5.20); White Blood Cell Count 7.33 K/mm3 (4.00-11.30)
[2023-06-20 09:05] LABS: Base Excess Venous -7.5 mmol/L; Bicarbonate Venous 18.6 mmol/L (24.0-30.0); PCO2 Venous 37.3 mmHg (38-42); pH Blood Venous 7.31 (7.34-7.37)
[2023-06-20 09:05] LABS: EOSINOPHILS PERCENT AUTO 1 % (0-6); IMMATURE GRAN PERCENT AUTO 3 % (0-1); LYMPHOCYTES ABSOLUTE AUTO 0.56 K/mm3 (0.84-5.20); LYMPHOCYTES PERCENT AUTO 8 % (21-46); MONOCYTES ABSOLUTE AUTO 0.33 K/mm3 (0.16-1.47); MONOCYTES PERCENT AUTO 5 % (4-13); NEUTROPHILS ABSOLUTE AUTO 6.11 K/mm3 (1.96-9.15); NEUTROPHILS PERCENT AUTO 83 % (41-73)
[2023-06-20 09:14] LABS: Albumin/Globulin Ratio 0.7 (0.8-1.8); Bilirubin, Total 1.3 mg/dL (0.1-1.0); Bun/Creatinine Ratio 20.1 (12.0-20.0); Calcium, Blood 7.2 mg/dL (8.5-10.1); Creatinine, Blood 2.29 mg/dL (0.40-1.00); Magnesium, Blood 1.6 mg/dL (1.6-2.4); Potassium, Blood 3.3 mmol/L (3.5-5.5)
[2023-06-20 09:19] LABS: HIV 1,2 COMBO ANTIGEN/ANTIBODY Negative (Negative)
[2023-06-20 12:55] LABS: HEPATITIS A ANTIBODY, IGM Negative (Negative); HEPATITIS B CORE ANTIBODY, IGM Negative (Negative); HEPATITIS B SURFACE ANTIGEN Negative (Negative); HEPATITIS C AB CIA INTERP Negative (Negative); HEPATITIS C ANTIBODY CIA INDEX 0.04 IV
[2023-06-20 13:18] LABS: Bicarbonate Venous 19.6 mmol/L (24.0-30.0); PCO2 Venous 38.1 mmHg (38-42); pH Blood Venous 7.33 (7.34-7.37)
[2023-06-20 13:46] LABS: Bun/Creatinine Ratio 20.6 (12.0-20.0); Calcium, Blood 7.2 mg/dL (8.5-10.1); Creatinine, Blood 2.18 mg/dL (0.40-1.00); Magnesium, Blood 1.5 mg/dL (1.6-2.4); Phosphorus, Blood 2.9 mg/dL (2.5-4.9); Potassium, Blood 3.3 mmol/L (3.5-5.5)
--- NOTE | 2023-06-20 13:58 | NUR ---
The patient requested a visit from Palliative Care today, states she does not want to pursue further treatment, other than to be made comfortable. Her stepmother is at bedside, and states she supports whatever the patient wants, and states the pt has been chronically ill for some time. The pt states she is in "terrible chronic pain", and is experiencing extreme SOB. She requests being made comfortable, and I let her know I would discuss this with the hospitalist. Dr. Sosa states this is fine, as pt is chronically ill and currently on pressers and 02. Comfort Care orders being placed now per Dr. Sosa.
--- NOTE | 2023-06-20 16:26 | NUR ---
SHIFT SUMMARY: NO ACUTE CHANGES THIS SHIFT. PT IS NOW COMFORT MEASURES ONLY & HAS BEEN RESTING QUIETLY THIS AFTERNOON. SHE REMAINS A&O TO SELF, FOLLOWING DIRECTIONS, FAMILY & PLACE, ALTHOUGH FORGETFUL AT TIMES. NASAL CANNULA REMOVED AT PT REQUEST. NO INCREASED WOB OR DYSPNEA NOTED. ALL MONITORS REMOVED. PT HAS NO GI COMPLAINTS, RECTAL TUBE REMAINS IN PLACE FOR SMALL AMNTS LIQUID BROWN STLS. URENA PATENT/ DRAINING LARGE AMNTS CLEAR YELLOW URINE - SEE I&O. SKIN CONDITION OVERALL UNCHANGED. DRESSINGS TO WEEPING BLE WOUNDS/ BLISTER HAVE BEEN CHANGED PRN THIS SHIFT. THE PT HAS INCREASED C/O PAIN DURING DRESSING CHANGE THIS EVENING W/ MEDS GIVEN PER EMAR. WILL CONTINUE TO MONITOR & REPORT OFF TO ONCOMING RN.
--- NOTE | 2023-06-20 17:43 | NUR ---
TRANSFER TO MEDICAL FLOOR: REPORT GIVEN TO IMAN BUTTS TO ASSUME CARE OF THIS PT. THE PT HAS BEEN TRANFERRED TO ROOM 337 VIA BED BY MAGDALENO YMERS. SHE STS COMFORT AT THAT TIME. CHART & ALL BELONGINGS HAVE BEEN TAKEN UP W/ THIS PT.
--- NOTE | 2023-06-20 18:20 | NUR ---
Received pt from ICU on comfort care. Awake and alert x3. Denies pain. Nausea noted, meds given. Dressing to RLE changed. Oriented to room and call light.
--- NOTE | 2023-06-20 18:46 | NUR ---
Home med bottles x8 including Gabapentin sent home with Yuliet per pt request.
--- NOTE | 2023-06-21 06:41 | NUR ---
SHIFT SUMMARY ADMIT FOR RICKEY W/ DIARRHEA, AND WEAPING BLLE EDEMA W/ LARGE BLISTERS TO R FOOT AND R CALF, COVERED W/ GAUZE WRAP. RECTAL TUBE AND URENA IN PLACE. PT A&OX3-4 AND REQUESTED C/C, PT REPORTS LOOKING FORWARD TO SEEING DAUGHTER THAT PASSED IN 2019. PT MEDICATED W/ 1MG ATIVAN THIS SHIFT FOR ANIETY THAT WORKED WELL AND ALLOWED PT TO GET SOME SLEEP. MIDNIGHT DOSE OF IMMODIUM NOT ADMINISTERED R/T SLEEPING WELL. PICC LINE TO R UPPER ARM AND PERIFERAL IV TO L FA, BOTH SL. NO FLUIDS RUNNING AT THIS TIME. WILL REPORT TO ONCOMING STAFF. CALL LIGHT W/IN REACH,
[2023-06-21 08:01] VITALS: BP 103/77
--- NOTE | 2023-06-21 11:24 | NUR ---
Comfort Care Visit Pt resting in bed upon arrival. Dr Hsieh and Primary RN Aryan at bedside. Plan to order additional Zofran and promethazine for nausea. Pt denies pain at this time. Pt responding minimally verbaly due to nausea. Ended visit to allow Pt to rest. Palliative Care will remain available
--- NOTE | 2023-06-21 18:35 | NUR ---
SHIFT SUMMARY Pt alert to self and place. IV meds effective for nausea and anxiety. PO meds effective for pain. Pt resting comfortably this afternoon. Osborn and rectal tube in place. Watery stool continues. Bites and sips of meals/water today. BLE weeping, dressings changed. Repositioned frequently for comfort and skin integrity.
--- NOTE | 2023-06-22 14:04 | NUR ---
Comfort Care Visit Pt resting in bed with her eyes closed. Pt appears comfortable with no S/S of distress at this time. Pt left undisturbed at this time. Spoke with Primary RN Aryan and discussed case. Palliative Care will remain available
--- NOTE | 2023-06-22 17:23 | NUR ---
SHIFT SUMMARY: Pt remains alert to self this shift. IV Ativan effective for anxiety, po meds effective for gen pain. Pt slept most of the day comfortably. Declines to eat meals and lethargic at times for meds. Repositioned Q2 hour. Rectal tube bag changed this am with decreased output. Osborn intact with michael output. Drsg changes to weeping BLE complete. Blister top of right foot intact. Pt mom at bedside today updated.
[2023-06-22 21:01] VITALS: BP 98/62
--- NOTE | 2023-06-23 04:53 | NUR ---
END OF SHIFT SUMMARY PT ON COMFORT CARE. PT SLEPT WELL OVERNIGHT, APPEARED TO BE COMFORTABLE. PT ABLE TO RESPOND TO VERBAL STIMULI, BUT QUICKLY FELL BACK ASLEEP. PT A&O x1, PT ON 2L OXYGEN VIA NC, O2 SAT AT 90%. PT REPOSITIONED EVERY 2 HOURS. FEET ELEVATED WITH PILLOWS. URENA CATH PATENT, DRAINING WELL, DARK JULIO IN COLOR. RECTAL TUBE HAS VERY LITTLE OUTPUT. PAIN MANAGED WITH PRN ROXANOL 10mg, AND IV ATIVAN FOR ANXIETY. SUCTION SET UP AT SIDE OF BED NEEDED. PRODUCTIVE COUGH PRESENT, LIGHT SAGE/YELLOW MUCOUS IN CANISTER. RESP RATE SHALLOW AND UNLABORED. FREQUENT SAFETY CHECKS COMPLETED TO ASSESS ANY SIGNS OF PAIN/DISCOMFORT. CALL LIGHT WITHIN REACH, WCTM.
--- NOTE | 2023-06-23 08:00 | NUR ---
ASSUMED CARE OF PT- BEDSIDE REPORT COMPLETED WITH NIGHT RN. PER REPORT THE PT RECIEVED ATIVAN AND ROXINOL X1 LAST NIGHT. PT APPEARED COMFORTABLE AT THE TIME OF SHIFT CHANGE. AT THE TIME OF FIRST FULL ASSESSMENT HOWEVER THE PT WAS MOANING AND GROANING INDICATING LEFT SIDE AND HEAD PAIN. MEDICATED WITH 10 OF ROXINOL. SPOKE TO PALLIATIVE CARE ABOUT GETTING COMFORT CARE MEDS ORDERED. IV ATIVAN WILL WORK BUT NOT EFFECTIVELY PO WHEN GIVEN WITH ROXANOL TO MANAGE THE PT SYMPTOMS AND MAINTAIN COMFORT. FAMILY FRIEND AT THE BEDSIDE AND NOTIFIED STAFF OF THE PT PAIN SYMPTOMS.
--- NOTE | 2023-06-23 10:00 | NUR ---
DRESSING CHANGE COMPLETED- PT LEG DRESSINGS WERE COMPLETELY SOAKED THROUGH. DRESSING CHANGE COMPLETED, PLACED PAPER CHUCKS UNDER EACH LEG TO HELP MAINTAIN LINNENS. PT BEING REPOSITIONED Q2 TO PREVENT FURTHER BREAKDOWN. WITH DRESING REMOVAL THE PT SKIN STICKS TO DRESSINGS AND TRIES TO TEAR OFF. WOUND SPRAY WORKS WELL TO PREVENT FURTHER SKIN DAMAGE.
--- NOTE | 2023-06-23 11:00 | NUR ---
Reviewed care plan with Primary RN. Pt is not able to swallow pills at this time. This PC RN reviewed pt's current MAR and orders. Spoke with provider re: request for medication changes. Provider reports she will see pt this morning and place orderes accordingly. Noified Primary RN of discussion with provider.
--- NOTE | 2023-06-23 13:40 | NUR ---
RECTAL TUBE DC'D- PT HAS HAD 0 OUTPUT SINCE THE START OF NOC SHIFT LAST NIGHT. SPOKE TO DR HANNAH AND RECIEVED ORDER TO DC. REPOSITIONED PT AND DISCOVERED THE TUBE WAS KINKED. WAITIED TO DC UNTIL THE NEXT REPOSITION.
--- NOTE | 2023-06-23 14:43 | NUR ---
Comfort Care Visit Met with Ni's mother, Sanam and Care Management in pt's room. Santana is lying in the bed, resting with eyes closed, occational groans. Primary RN administered ativan just prior to this PC RN's visit. This PC RN provided gentle education re: hospice care to Sanam. Care Management discussed d/c planning options. Sanam reports she is 90 y/o and not able to care for Ni. Pt has a forepart reducer caregiver that helps with meals and house cleaning. Her caregiver is not able to provide 24 hour personal care. Care Management provided Sanam with adult foster home options. Sanam has had family use [facility] in the past and would like that home to be 1st option for d/c on hospice. Sanam reports she would like [facility] if pt passes in the hospital. 1st point of contact at time of pass is to be kranthi Shelley [phone] Sanam's home number [phone], cell [phone].
--- NOTE | 2023-06-23 15:30 | NUR ---
Supportive Visit Pt's mother Sanam had additional questions re: hospice care. This PC RN answered questions in a manner that Sanam verbalized understanding of hospice goals of care and services provided. Theraputic listening with Sanam reminiscing about the time she has shared with Ni. "Ni is one of my best friends. I have lost so many this last year. I couldn't have made it without Ni." Offered spiritual care visit. Sanam declined SC visit today. Will remain available as needed.
--- NOTE | 2023-06-23 18:30 | NUR ---
SHIFT SUMMARY- PT HAS BEEN UNCOMFORTABLE OFTEN THIS SHIFT. MEDICATED FOR PAIN SEVERAL TIMES. PT HAS HAD VISITORS T/O THE DAY, SHORTLY AFTER GOING IN TO VISIT THEY WOULD COME OUT TEARFUL WITH CONCERN ASKING IF THE PT CAN HAVE PAIN MEDS. THE PT HAS BEEN RELAXED AND COMFORTABLE SINCE THE LAST PAIN MEDS. VISITOR WAS AT THE BEDSIDE UNTIL A MOMENT AGO.
--- NOTE | 2023-06-23 18:51 | NUR ---
PT PASSED- TOD 1838 NO BREATH SOUNDS OR HEART SOUNDS AUDIBLE. CONFIRMED WITH IMAN SORTO. DR HANNAH NOTIFIED AT 1845 MARKETERIMAN SELF NOTIFIED AT 1847 NURSING PROJECT PRODUCT MANAGER NOTIFIED AT 1848 PALLIATIVE CARE UNAVAILABLE AT THIS TIME
--- NOTE | 2023-06-24 01:36 | NUR ---
HOME HAS PICKED UP PATIENT, BELONGINGS IN PT BAG SENT WITH. WEDDING BAND STAYED ON PATIENT. PICC LINE STAYED IN PT PER DRAW OPERATORIMAN JARAMILLO
[2023-06-25 06:25] LABS: OVA AND PARASITE,FECAL INTERP Negative (Negative)
== END 2023-06-24 00:27 | DRG 371 ==
LOC: ER 10:55 → MEDS 15:57 → ICUE 15:57 → MEDS 16:54 → ICUE 21:54 → MEDS 06-20 17:55
PROVIDERS: Emergency Medicine; Internal Medicine; Nurse Practitioner Acute Care; Student in an Organized Health Care Education/Training Program; ADMIT Hospitalist
PROC: 4A033R1 Measurement of Arterial Saturation, Peripheral, Percutaneous Approach (ICD-10-PCS; principal; 2023-06-18)
DX: A04.5 Campylobacter enteritis (principal); J96.01 Acute respiratory failure with hypoxia; N17.0 Acute kidney failure with tubular necrosis; E87.20 Acidosis, unspecified; E87.1 Hypo-osmolality and hyponatremia; J81.1 Chronic pulmonary edema; N39.0 Urinary tract infection, site not specified; I50.32 Chronic diastolic (congestive) heart failure; Z66 Do not resuscitate; Z51.5 Encounter for palliative care; R57.1 Hypovolemic shock; T79.6XXA Traumatic ischemia of muscle, initial encounter; W18.39XA Other fall on same level, initial encounter; E86.0 Dehydration; E86.9 Volume depletion, unspecified; E87.6 Hypokalemia; E83.42 Hypomagnesemia; E83.51 Hypocalcemia; I48.0 Paroxysmal atrial fibrillation; E87.70 Fluid overload, unspecified; K76.0 Fatty (change of) liver, not elsewhere classified; I27.20 Pulmonary hypertension, unspecified; I73.9 Peripheral vascular disease, unspecified; I87.2 Venous insufficiency (chronic) (peripheral); I11.0 Hypertensive heart disease with heart failure; I25.10 Atherosclerotic heart disease of native coronary artery without angina pectoris; K21.9 Gastro-esophageal reflux disease without esophagitis; B96.20 Unspecified Escherichia coli [E. coli] as the cause of diseases classified elsewhere; Z87.891 Personal history of nicotine dependence
CPT/HCPCS: 0241U; 36415; 36569; 36600; 51703; 71045; 71250; 76705; 76770; 80048; 80053; 80074; 81001; 82310; 82330; 82550; 82803; 82947; 83605; 83735; 83880; 84100; 84484; 85025; 85379; 87015; 87040; 87045; 87046; 87077; 87086; 87177; 87186; 87205; 87209; 87389; 87507; 87899; 93005; 93010; 94762; 96361; 96374; 97110; 97166; 97530; 99285-25; A9270; C1751; C8929; J0282; J0456; J0612; J0692; J0696; J1160; J1720; J1815; J1940; J2060; J2270; J2371; J2405; J2765; J3475; J3480; J7030; J7040; J7050; J7060; J7070; P9047; Q9957